=== PATIENT | female | born 1940 | race Caucasian/White ===

== ENCOUNTER → 2016-06-21 | Outpatient (CLI) | payer MEDICARE, OTHER ==
--- OUTSIDE RECORDS SUMMARY | 2016-06-21 15:05 | XMS REPORT | Continuity of Care Document ---
Author Author [facility] Organization [facility] Address Unknown Phone Unavailable Care Team Providers Care Gas Welder Name Role Phone Brittani Garcia PCP [phone] Source Comments Some departments are not documenting in the electronic medical record. If you do not see the information that you expected, contact Release of Information in the Health Information Management department at [phone] for further assistance in locating additional records.[facility] Active Allergies and Adverse Reactions Allergen Noted Date Severity Reactions Comments Sulfa (Sulfonamide 11/25/2013 HIVES Antibiotics) Current Medications Prescription Sig. Disp. Refills Start End Date Status Date losartan(+) (COZAAR) 100 Take 100 mg by mouth Active mg tablet daily. amLODIPine (NORVASC) 5 mg Take 5 mg by mouth daily. Active tablet atorvastatin (LIPITOR) 40 Take 40 mg by mouth Active mg tablet daily. acetaminophen (TYLENOL) Take 1,500 mg by mouth Active 500 mg tablet daily. Active Problems Problem Noted Date Abdominal pain 11/28/2013 Hypertension Hyperlipidemia Immunizations Name Dates Previously Given Next Due Flu Vaccine=>1 YO 02/13/2013 (Historical) Social History Tobacco Use Types Packs/Day Years Used Date Former Smoker Cigarettes 20 Comments: quit 1982, social smoker 1 pack/week Alcohol Use Drinks/Week oz/Week Comments No Last Filed Vital Signs Vital Sign Reading Time Taken Blood Pressure 152/80 11/25/2013 4:23 PM CDT Pulse 56 11/25/2013 4:23 PM CDT Temperature 36.8 C (98.3 F) 11/25/2013 4:23 PM CDT Respiratory Rate 20 11/25/2013 4:23 PM CDT Height 1.607 m (5' 3.25") 11/25/2013 4:23 PM CDT Weight 69.355 kg (152 lb 14.4 11/25/2013 4:23 PM CDT oz) Body Mass Index 26.86 11/25/2013 4:23 PM CDT Oxygen Saturation - - Plan of Care Health Maintenance Due Date Last Done Comments Physical (Comprehensive) 1945 Exam Pertussis Vaccine 1949 Tetanus Vaccine 1955 Breast Cancer Screening 1978 Shingles Vaccine 1998 Osteoporosis Screening 2003 Prevnar/Pneumovax (#1) 2003 Influenza Vaccine 12/30/2014 02/13/2013 Results from Last 3 Months Not on file
[2016-06-21 15:21] LABS: BASOPHILS % (AUTO) 0 % (0-10); EOSINOPHILS # (AUTO) 0.1 10^3/uL (0.0-0.3); EOSINOPHILS % (AUTO) 1 % (0-10); LYMPHOCYTES # (AUTO) 3.5 X 10^3 (1.0-4.0); LYMPHOCYTES % (AUTO) 49 % (12-44); MEAN CORPUSCULAR HEMOGLOBIN 32 PG (25-34); MEAN CORPUSCULAR HGB CONC 34 G/DL (32-36); MEAN CORPUSCULAR VOLUME 94 FL (80-99); MEAN PLATELET VOLUME 8.7 FL (7.4-10.4); MONOCYTES # (AUTO) 0.8 X 10^3 (0.0-1.0); MONOCYTES % (AUTO) 11 % (0-12); NEUTROPHILS # (AUTO) 2.8 X 10^3 (1.8-7.8); NEUTROPHILS % (AUTO) 39 % (42-75); PLATELET COUNT 284 10^3/uL (130-400); RED BLOOD COUNT 4.32 10^6/uL (4.35-5.85); RED CELL DISTRIBUTION WIDTH 12.8 % (10.0-14.5); WHITE BLOOD COUNT 7.2 10^3/uL (4.3-11.0)
[2016-06-21 15:34] LABS: BLOOD UREA NITROGEN 14 MG/DL (7-18); BUN/CREATININE RATIO 16; CREATININE SERUM 0.89 MG/DL (0.60-1.30); GFR ESTIMATED > 60
== END ==
LOC: LAB 15:02
PROVIDERS: ATTEND Internal Medicine Critical Care Medicine
DX: J40 Bronchitis, not specified as acute or chronic (principal); R06.00 Dyspnea, unspecified
CPT/HCPCS: 36415; 82565; 83880; 84520; 85025

== ENCOUNTER → 2016-06-29 | Outpatient (CLI) | payer MEDICARE, OTHER ==
[~2016-06-29] MED LIST: CATHETER FLUSH 10 ML SYR IV PRN; IOHEXOL 350 MG/ML 100 ML (OMNIPAQUE 350) VIAL IV ONE; NS 100 ML (IVPB) BAG IV ONE
--- OUTSIDE RECORDS SUMMARY | 2016-06-29 10:58 | XMS REPORT | Continuity of Care Document ---
Author Author [facility] Organization [facility] Address Unknown Phone Unavailable Care Team Providers Care Clinical Care Coordinator Name Role Phone Brittani Garcia PCP [phone] Source Comments Some departments are not documenting in the electronic medical record. If you do not see the information that you expected, contact Release of Information in the Health Information Management department at [phone] for further assistance in locating additional records.[facility] Active Allergies and Adverse Reactions Allergen [...]
--- NOTE | 2016-06-29 13:45 | Diagnostic Imaging Report ---
PROCEDURE: CT chest with contrast only. TECHNIQUE: Multiple contiguous axial images were obtained through the chest after administration of intravenous contrast. INDICATION: Dyspnea. Bronchitis. 75 mL of Omnipaque-350 is administered intravenously. FINDINGS: The lungs demonstrate no significant consolidation, mass, or suspicious nodule. No significant interstitial lung disease, bronchiectasis, or emphysema. Minimal interstitial scarring in the bases seen. There is a calcified granuloma in the right upper lobe. There is no pleural or pericardial effusion. The thoracic aorta is normal in caliber. There is no mediastinal mass. Adjacent to the right paratracheal chain, prominent soft tissue density is probably related to prominent focal segment of the nonopacified azygos vein. No definite lymphadenopathy in the mediastinum, keysha, or in the axilla. Bilateral retroglandular implants with calcified rims seen in the breasts. Sections in the upper abdomen demonstrate no significant abnormality. There is scoliosis in the thoracic spine with mild right convexity at the lower thoracic level. IMPRESSION: Minimal bibasilar scarring. Dictated by: Dictated on workstation # [id number]
== END ==
LOC: RAD 10:55
PROVIDERS: ATTEND Internal Medicine Critical Care Medicine
DX: R06.00 Dyspnea, unspecified (principal); J40 Bronchitis, not specified as acute or chronic
CPT/HCPCS: 71260

== ENCOUNTER → 2017-11-17 | Outpatient (CLI) | payer MEDICARE, OTHER ==
--- NOTE | 2017-11-17 15:13 | Diagnostic Imaging Report ---
INDICATION: Paget's disease. TECHNIQUE: Patient was administered 27.0 mCi technetium 99m MDP intravenously and whole-body imaging was performed after a three-hour delay. COMPARISON: No prior bone scans are available for comparison. FINDINGS: There is uptake of activity by the axial and appendicular skeleton. There is uptake by both kidneys with excretion into the urinary bladder. There is intense uptake involving the right hemipelvis. This appears to involve the right iliac bone and a portion of the ischium. There is some patchy milder uptake in the mid and distal aspect of the right femur. No other abnormal foci are identified. IMPRESSION: Intense right hemipelvic uptake. Features would be suggestive of patient's diagnosis of Paget's disease. Correlation with plain films would be useful for further evaluation. Dictated by: Dictated on workstation # [id number]
== END ==
LOC: CARD 11:18
PROVIDERS: ATTEND Family Medicine
DX: M88.9 Osteitis deformans of unspecified bone (principal)
CPT/HCPCS: 78306

== ENCOUNTER → 2017-11-30 | Outpatient (CLI) | payer MEDICARE, OTHER ==
--- NOTE | 2017-11-30 15:55 | Diagnostic Imaging Report ---
INDICATION: Abnormal bone scan of right hip. AP and oblique views of the right hip are obtained. FINDINGS: There is no acute fracture or dislocation. There is ill-defined sclerotic change and irregularity in the inferior portion of the right iliac bone, right superior pubic ramus and inferior ramus as well as the right ischium, as well as in the right proximal femur. These findings are compatible with Paget's disease. IMPRESSION: Findings compatible with Paget's disease involving the bones about the right hip and hemipelvis as above, with no fracture or other complicating feature. Dictated by: Dictated on workstation # [id number]
== END ==
LOC: RAD 15:10
PROVIDERS: ATTEND Nurse Practitioner Family
DX: M85.88 Other specified disorders of bone density and structure, other site (principal)
CPT/HCPCS: 73502

== ENCOUNTER → 2021-08-19 | Outpatient (CLI) | payer MEDICARE, OTHER ==
--- NOTE | 2021-08-19 16:44 | Diagnostic Imaging Report ---
INDICATION: L ANKLE PAIN COMPARISON: None. FINDINGS: 3 views of the left ankle were obtained. There is no acute fracture or dislocation. No focal osseous lesions are seen. The surrounding soft tissue structures are unremarkable. There are no radiopaque foreign bodies. IMPRESSION: 1. No acute fracture or dislocation in the left ankle. Dictated by: Dictated on workstation # [id number]
== END ==
LOC: RAD 16:28
PROVIDERS: ATTEND Nurse Practitioner
DX: M25.572 Pain in left ankle and joints of left foot (principal)
CPT/HCPCS: 73610

== ENCOUNTER → 2021-12-07 | Outpatient (CLI) | payer MEDICARE ==
--- NOTE | 2021-12-07 17:33 | Diagnostic Imaging Report ---
INDICATION: Postmenopausal state. COMPARISON: None available. FINDINGS: AP Spine L1-L4: [BMD (g/cm2): 1.071] [T-Score: -1.1] [Z-Score: 0.5] [BMD Previous: na] [BMD % Change: na] LT Hip Neck: [BMD (g/cm2): 0.827] [T-Score: -1.5] [Z-Score: 0.6] LT Hip Total: [BMD (g/cm2):0.958] [T-Score:-0.4] [Z-Score: 1.6] [BMD Previous: na] [BMD % Change: na] RT Hip Neck: [BMD (g/cm2):1.179] [T-Score:1.0] [Z-Score:3.1] RT Hip Total: [BMD (g/cm2):1.331] [T-score:2.6] [Z-Score:4.5] [BMD Previous:na] [BMD % Change:na] *Indicates significant change from prior examination based on 95% confidence level. World Health Organization criteria for BMD interpretation classify patients as Normal (T-score at or above -1.0), Osteopenic (T-score between -1.0 and -2.5) or Osteoporotic (T-score at or below -2.5). LIMITATIONS AND MODIFICATION: Significant degenerative changes within the bilateral hips. [place] left curvature of the spine. FRACTURE RISK (FRAX SCORE): The ten year probability of (%): Major Osteoporotic Fracture: [13.5] Hip Fracture: [3.6] IMPRESSION: 1. Osteopenia (Low bone mass). 2. Baseline examination. 3. See below National Osteoporosis Foundation guidelines on when to potentially initiate pharmacologic therapy. Based on the National Osteoporosis Foundation Guidelines, pharmacologic treatment should be initiated in any of the following, unless clinical conditions suggest otherwise: * Any patient with prior fragility fracture of the hip or vertebrae. A spine fracture indicates 5X risk for subsequent spine fracture and 2X risk for subsequent hip fracture. * Osteoporosis (T-score <-2.5). * Postmenopausal women and men age 50 and older with low bone mass/osteopenia (T-score between -1.0 and -2.5) by DXA and 10-year major osteoporotic fracture greater than 20% or a 10-year probability of hip fracture greater than 3%. These fracture risks are supplied above in the FRAX score, if applicable. * Clinician judgement and/or patient preferences may indicate treatment for people with 10-year fracture probabilities above or below these levels. Dictated by: Dictated on workstation # [id number]
== END ==
LOC: RAD 13:53
PROVIDERS: ATTEND Nurse Practitioner
DX: Z13.820 Encounter for screening for osteoporosis (principal); M85.80 Other specified disorders of bone density and structure, unspecified site; Z78.0 Asymptomatic menopausal state
CPT/HCPCS: 77080